=== PATIENT | female | born 1980 | race Caucasian/White ===

== ENCOUNTER 2016-06-03 00:16 | Observation (INO) | payer OTHER ==
[~2016-06-03] VITALS: Ht 167.6 cm; Wt 68.0 kg
--- NOTE | 2016-06-03 01:50 | HHI.HP ---
History & Physical H&P HPI HPI Travel History International Travel<30 Days: No Contact w/Intl Traveler<30Days: No Known Affected Area: No History of Present Illness HPI This patient is a 35-year-old 1 para 0 EDC is September 13, 2016 presently at 25 weeks and 3 days she presents after her witnessed a seizure. He describes the post ictal phase after the seizure patient has a history of seizures since the age of 17 care with HOGA courses been unremarkable to date patient is presently on Keppra thousand milligrams in the morning and 1500 mg in the evening No ruptured membranes no vaginal bleeding no contractions no pain the baby is active her last seizure was in 2000 History (Limited) History Past Medical History Narrative Medical Patient is allergic to sulfa Seizure activity Medications include Keppra 2500 mg per day vitamins Fully casted 4 mg per day Zantac 150 mg twice a day Tylenol Obstetric History Obstetric History First Past Surgical History Narrative Surgical Tonsils were removed Laparoscopy secondary to endometriosis Left knee surgery Umbilical hernia repair Family History Family History: Negative Social History Alcohol Use: No Tobacco Use: No Substance Abuse: No Allergies-Medications Allergies-Medications Comments Allergy to sulfa ROS Review of Systems General / Constitutional: No: Fever, Weight Gain, Weight Loss, Chills, Other Eyes: No: Diploplia, Blurred Vision, Visual changes, Pain, Photophobia, Other HENT: No: Headaches, Vertigo, Dental Difficulties, Lightheadedness, Other Cardiovascular: No: Irregular Rhythm, Chest Pain or Discomfort, Palpitations, Tachycardia, Syncope, Varicosities, Edema, Cyanosis, Other Respiratory: No: Cough, Short of Breath, Wheezing, Other Gastrointestinal: No: Nausea, Vomiting, Diarrhea, Abdominal Pain, Hematemesis, Hematochezia, Constipation, Changes in Bowel Habits, Indigestion, Loss of Appetite, Other Genitourinary: No: Urgency, Frequency, Dysuria, Nocturia, Hematuria, Decreased Urinary Output, Oliguria, Hesitancy, Dribbling, Incontinence, Pelvic Pain, Dyspareunia, Discharge, Menorrhagia, Vaginal Bleeding, Other Musculoskeletal: No: Limited ROM, Weakness, Cramping, Edema, Pain, Other Skin: No Rash, No Itching, No Dryness, No Lumps, No Change in Pigmentation, No Change in Nails, No Alopecia, No Lesions, No Breast Lumps, No Breast Tenderness , No Breast Swelling, No Other Physical Exam Physical Exam Narrative GENERAL: Well-nourished, well-developed patient. Alert oriented 3 and cooperative presently SKIN: Warm and dry. HEAD: Normocephalic and atraumatic. EYES: No scleral icterus. No injection or drainage. Conjunctiva are pink sclerae are clear ENT: No nasal drainage noted. Mucous membranes pink. Airway patent. Mucous membranes are moist NECK: Supple, trachea midline. No JVD. No adenopathy no thyroid enlargement CARDIOVASCULAR: Regular rate and rhythm without murmurs, gallops, or rubs. RESPIRATORY: Breath sounds equal bilaterally. No accessory muscle use. ABDOMEN/GI: Gravid consistent with 25 weeks no epigastric or right upper quadrant tenderness no organomegaly no tenderness over the left or right round ligament no suprapubic tenderness the uterus is consistent with 25 weeks size Gravid to [-] weeks size 25 Fundal Height: [-] GENITOURINARY: Pelvic exam is deferred as patient has no obstetric complaints External Genitalia: intact and normal in appearance BUS glands: [-] Cervix: [-] Dilatation: [-] Effacement: [-] Station: [-] Presentation: [-] Membranes: [intact Uterine Contractions: [-]0 FHT's: Category: [-] 1 Baseline: [-] 140 Reactive: [-] + Accelerations to 160 Variability: [-] Moderate [id number] variability Decels: [-] 0 EXTREMITIES: No cyanosis or edema. 2+ reflux BACK: Nontender without obvious deformity. No CVA tenderness. NEUROLOGICAL: Awake and alert. Motor and sensory grossly within normal limits. Five out of 5 muscle strength in all muscle groups. Normal speech. [employer]PER[employer] is grossly intact Data Data Data Vital Signs Reviewed: Yes (blood pressures 114/69 pulse is 86 temperature is 98.4) [facility] Medical Record Reviewed: No Interpretation(s) 35-year-old at 25 weeks and 3 days Not in labor History of seizures Recent seizure witnessed by Plan Admitted for 24-hour observation External monitoring IV fluid hydration CBC CMP uric acid urinalysis Keppra level Ativan as needed Physician Communication Spoke with Dr. Sorenson she agrees with evaluation and management Diagnosis Diagnosis: Primary Impression: Seizures Additional Impression: 25 weeks gestation of Rosalva Cardenas MD Jun 03, 2016 01:48 Rosalva Cardenas MD Jun 03, 2016 01:50
[2016-06-03] MEDS: LACTATED RINGER'S 1000 ML INJ 1,000 ML IV SCH ×2 (01:51→08:49)
[2016-06-03] MEDS ORDERED: SODIUM CHLORIDE 0.9% FLUSH 5 ML FLUSH IVF PRN (02:00)
[2016-06-03] MEDS ORDERED: levETIRAcetam 500 MG TAB PO ONE (02:00)
[2016-06-03] MEDS ORDERED: LORazepam 2 MG/ML VIAL IV PUSH ONE (02:00)
[2016-06-03] MEDS ORDERED: ZOLPIDEM TARTRATE 5 MG TAB PO ONE (02:00)
[2016-06-03] MEDS ORDERED: FOLIC ACID 1 MG TAB PO ONE (02:00)
[2016-06-03 02:25] LABS: AUTOMATED NEUTROPHIL # 8.5 TH/MM3 (1.8-7.7); BASOPHIL % 0.3 % (0.0-2.0); EOSINOPHIL # 0.1 TH/MM3 (0-0.4); EOSINOPHIL % 1.1 % (0.0-4.0); HEMATOCRIT 29.1 % (35.0-46.0); HEMO FLAGS DIFF FINAL; LYMPH % 16.3 % (9.0-44.0); LYMPHOCYTE # 1.8 TH/MM3 (1.0-4.8); MEAN CELL VOLUME 93.3 FL (80.0-100.0); MEAN CORPUSCULAR HEMOGLOBIN 33.5 PG (27.0-34.0); MEAN CORPUSCULAR HGB CONC 35.9 % (32.0-36.0); MONO % 4.8 % (0.0-8.0); NEUT % 77.5 % (16.0-70.0); PLATELET COUNT 159 TH/MM3 (150-450); RED BLOOD COUNT 3.12 MIL/MM3 (4.00-5.30); WHITE BLOOD COUNT 10.9 TH/MM3 (4.0-11.0)
[2016-06-03 02:38] LABS: BLOOD, URINE NEG (NEG); GLUCOSE,URINE NEG (NEG); KETONE, URINE 10 mg/dL (NEG); MUCUS URINE FEW /lpf (OCC); NITRITE,URINE NEG (NEG); PH, URINE 5.5 (5.0-8.5); RENAL EPITHELIAL CELLS <1 /hpf; URINE COLOR YELLOW (YELLW/STRAW)
[2016-06-03 02:39] LABS: COMMENT (UR) CULT NOT INDICATED; CULTURE IF INDICATED CULT NOT INDICATED
[2016-06-03 02:50] LABS: ALT (GPT) 17 U/L (10-53); ANION GAP 9 MEQ/L (5-15); AST (GOT) 11 U/L (15-37); BICARBONATE 22.9 MEQ/L (21.0-32.0); BLOOD UREA NITROGEN 10 MG/DL (7-18); CHLORIDE 107 MEQ/L (98-107); GLOMERULAR FILTRATION RATE 108 ML/MIN (>89); POTASSIUM 3.5 MEQ/L (3.5-5.1); SODIUM (NA) 139 MEQ/L (136-145)
[2016-06-03 02:53] LABS: ALKALINE PHOSPHATASE 44 U/L (45-117); TOTAL BILIRUBIN ADULT 0.2 MG/DL (0.2-1.0)
--- NOTE | 2016-06-03 08:14 | PD.OB.ANTE ---
Subjective Diagnosis: (1) Seizures Diagnosis: Principal (2) 25 weeks gestation of Diagnosis: Secondary Antepartum ROS: Reports: movement normal Objective Lab & Micro Results Test 06/03/16 06/03/16 00:35 01:15 Urine Color YELLOW Urine Turbidity CLEAR Urine pH 5.5 Urine Specific [place] 1.023 Urine Protein TRACE mg/dL Urine Glucose (UA) NEG mg/dL Urine Ketones 10 mg/dL Urine Occult Blood NEG Urine Nitrite NEG Urine Bilirubin NEG Urine Urobilinogen LESS THAN 2.0 MG/DL Urine Leukocyte Esterase NEG Urine RBC 1 /hpf Urine WBC 3 /hpf Urine Renal Epithelial Cells <1 /hpf Urine Mucus FEW /lpf Microscopic Urinalysis Comment CULT NOT INDICATED White Blood Count 10.9 TH/MM3 Red Blood Count 3.12 MIL/MM3 Hemoglobin 10.5 GM/DL Hematocrit 29.1 % Mean Corpuscular Volume 93.3 FL Mean Corpuscular Hemoglobin 33.5 PG Mean Corpuscular Hemoglobin 35.9 % Concent Red Cell Distribution Width 13.0 % Platelet Count 159 TH/MM3 Mean Platelet Volume 9.6 FL Neutrophils (%) (Auto) 77.5 % Lymphocytes (%) (Auto) 16.3 % Monocytes (%) (Auto) 4.8 % Eosinophils (%) (Auto) 1.1 % Basophils (%) (Auto) 0.3 % Neutrophils # (Auto) 8.5 TH/MM3 Lymphocytes # (Auto) 1.8 TH/MM3 Monocytes # (Auto) 0.5 TH/MM3 Eosinophils # (Auto) 0.1 TH/MM3 Basophils # (Auto) 0.0 TH/MM3 CBC Comment DIFF FINAL Differential Comment Sodium Level 139 MEQ/L Potassium Level 3.5 MEQ/L Chloride Level 107 MEQ/L Carbon Dioxide Level 22.9 MEQ/L Anion Gap 9 MEQ/L Blood Urea Nitrogen 10 MG/DL Creatinine 0.63 MG/DL Estimat Glomerular Filtration 108 ML/MIN Rate Random Glucose 94 MG/DL Calcium Level 8.6 MG/DL Total Bilirubin 0.2 MG/DL Aspartate Amino Transf 11 U/L (AST/SGOT) Alanine Aminotransferase 17 U/L (ALT/SGPT) Alkaline Phosphatase 44 U/L Total Protein 6.1 GM/DL Albumin 2.9 GM/DL Physical Exam GENERAL: Well-nourished, well-developed patient. CARDIOVASCULAR: Regular rate and rhythm without murmurs, gallops, or rubs. RESPIRATORY: Breath sounds equal bilaterally. No accessory muscle use. ABDOMEN/GI: Abdomen soft, non-tender. Fundus: [-] GENITOURINARY: External Genitalia: deferred Cervix: [-] Dilatation: [-] Effacement: [-] Station: [-] Presentation: [-] Membranes: [-] Uterine Contractions: [-] FHT's: Category: [-] 1 Baseline: [-] Reactive: [-] Variability: [-] good Decels: [-] EXTREMITIES: No cyanosis or edema, non-tender, without signs of DVT. Assessment and Plan Problem List: (1) Seizures Status: Acute (2) 25 weeks gestation of Status: Acute Assessment and Plan OB diagnostic US pt sees neurologist at [facility], Dr Solis may need to consult neuro here Nguyen Tadeo MD Jun 03, 2016 08:14
[2016-06-03] MEDS ORDERED: SODIUM CHLORIDE 0.9% FLUSH 5 ML FLUSH IVF SCH (09:00)
[2016-06-03] MEDS ORDERED: FAMOTIDINE 20 MG TAB PO SCH (09:00)
[2016-06-03 12:14] VITALS: BP 110/61; PULSE 71
[2016-06-03 13:00] VITALS: RESP 17
[2016-06-03 15:10] VITALS: BP 104/64
[2016-06-03] MEDS ORDERED: levETIRAcetam 500 MG TAB PO SCH (21:00)
--- NOTE | 2016-06-04 05:49 | MB ---
cc: MINNIE CAUSEY DATE OF CONSULTATION 06/03/2016 REASON FOR CONSULTATION Breakthrough seizure. HISTORY OF PRESENT ILLNESS This is a 35-year-old female who has a past medical history of seizures diagnosed when she was 17 years of age, has complex partial seizures with secondary generalization. Currently 25 weeks and on Keppra 1000 mg in the morning and 1500 at night. She takes the medication faithfully every day. She denies missing a single dose. She also takes folic acid as well 4 mg. The patient's last seizure was in 2000. Her seizures are always described as being nocturnal seizures. She was initially on Depakote until she was in college where she was switched to Tegretol and in 2006 she was started on Keppra. She has a positive family history of seizures in her aunt. The patient was found by her to be having a grand mal seizure that was brief, followed by postictal confusion. Denies any foaming, tongue biting or loss of sphincter control. The patient denies any change in daily habit, lifestyle, dehydration, recent infection or recent medication added to her list.The patient was also assessed by the [employer] and their evaluation was unremarkable. REVIEW OF SYSTEMS A 12-point review of systems is negative except for what is stated in the HPI. PAST MEDICAL HISTORY Seizures. FAMILY HISTORY Positive for seizures in aunt. SOCIAL HISTORY Denies alcohol, tobacco or substance abuse. PAST SURGICAL HISTORY 1. Tonsillectomy. 2. Laparoscopic surgery secondary to endometriosis. 3. Left knee surgery. 4. Umbilical hernia repair. MEDICATIONS 1. Keppra. 2. Folic acid. 3. Zantac. 4. Tylenol. ALLERGIES SULFA. PHYSICAL EXAMINATION GENERAL: Pleasant, good historian. Well-developed, awake, cooperative. HEENT: Atraumatic, normocephalic. Intact hearing and intact vision. NECK: Supple. No adenopathy. No signs of meningeal irritation. CARDIOVASCULAR: Regular rate and rhythm. RESPIRATORY: Equal breath sounds, no wheezes. NEUROLOGIC EXAMINATION: Awake, alert, oriented to time, person and place. Cranial nerves are grossly intact II-XII. Motor, sensory and cerebellar functions are intact. LABORATORY DATA White blood cells 10.9, hemoglobin 10.5, MCV 93.3, platelet count 159. Sodium 139, potassium 3.5, carbon dioxide 22.9, BUN 10, creatinine 0.63. Calcium 8.6, AST 11, alkaline phosphatase 44, total protein 6.1, albumin 2.9. Keppra level is pending. DIAGNOSTIC IMPRESSION 1. Breakthrough seizures. 1. Likely etiology is the increase of the volume in the third trimester, increased urinary clearance of the Keppra in the third trimester of that requires a titration of the dose. We discussed the possible effect of Zantac in slowing the absorption. There was no evidence that Zantac would interfere with absorption of Keppra. PLAN 1. Increase Keppra dose to 1500 twice daily. 2. Continue folic acid 4 mg daily. 3. Seizure precautions. 4. Follow up on the Keppra level. Thank you for the opportunity to participate in the care of your patient. MD VERA Neville/MAYELA /11:20 PM /5:41 AM CORTNEY
== END 2016-06-03 15:34 | disposition home or self-care (01) ==
LOC: HOBED 00:16 → H2EA 02:01
PROVIDERS: ADMIT Obstetrics & Gynecology; ATTEND Obstetrics & Gynecology
DX: R56.9 Unspecified convulsions (principal); Z3A.25 25 weeks gestation of pregnancy
CPT/HCPCS: 76816; 80053; 80177; 81001; 85025; 96360; 99285; G0378; J7120

== ENCOUNTER 2016-09-01 20:12 | Inpatient (IN) | payer OTHER ==
[~2016-09-01] VITALS: Ht 167.6 cm; Wt 77.1 kg
[2016-09-01] VITALS (18 sets, daily range): BP systolic 118–130; BP diastolic 65–82; PULSE 80–105; RESP 18; TEMP 98
[2016-09-01] MEDS ORDERED: ZANT150T2 PO (20:47)
[2016-09-01] MEDS ORDERED: PREN29TA PO (20:47)
[2016-09-01] MEDS ORDERED: LACTATED RINGER'S 1000 ML INJ 1,000 ML IV PRN (20:47)
[2016-09-01] MEDS ORDERED: FOLI5CAP PO (20:48)
[2016-09-01] MEDS ORDERED: KEPP10002 PO ×2 (20:49)
[2016-09-01] MEDS ORDERED: levETIRAcetam 500 MG TAB PO SCH (21:00)
[2016-09-01] MEDS ORDERED: OXYTOCIN 30 UNITS-500ML PREMIX 500 ML IV ONE (21:00)
[2016-09-01] MEDS ORDERED: CITRIC ACID-SODIUM CITRATE LIQ 30 ML UDC PO SCH (21:00)
[2016-09-01] MEDS ORDERED: MINERAL OIL 10 ML VIAL TOPICAL PRN (21:00)
[2016-09-01] MEDS ORDERED: ONDANSETRON HCL 4 MG/2 ML VIAL IV PRN (21:00)
[2016-09-01] MEDS ORDERED: LIDOCAINE HCL 1% 50 ML VIAL I-DERMAL PRN (21:00)
[2016-09-01] MEDS ORDERED: LIDOCAINE HCL 1% 50 ML VIAL INFIL PRN (21:00)
[2016-09-01] MEDS ORDERED: SODIUM CHLORID 0.9% 500 ML INJ 500 ML IV PRN (21:00)
[2016-09-01] MEDS ORDERED: SODIUM CHLOR 0.9% 1000 ML INJ 1,000 ML IV PRN (21:07)
--- NOTE | 2016-09-01 21:08 | PD ---
HPI Chief Complaint contractions Date Seen: Sep 01, 2016 Time Seen: 20:45 Travel History International Travel<30 Days: No Contact w/Intl Traveler<30Days: No Known Affected Area: No History of Present Illness HPI Pt is a 35 y/o G1 with IUP at 38w2d who presents with c/o contractions. denies vb, lof. +FM Para: 0 : 1 History Past Medical History Narrative Medical seizure disorder Obstetric History Obstetric History G1 Past Surgical History Narrative Surgical tonsillectomy umb hernia repair knee surg laparoscopy Family History Family History: Negative Social History Alcohol Use: No Tobacco Use: No Substance Abuse: No Allergies-Medications (Allergen,Severity, Reaction): Coded Allergies: Sulfa (Verified Allergy, Intermediate, Hives, 06/03/16) Home Meds Reported Medications Levetiracetam (Keppra)1,000 Mg Tab2,500 Mg PO HS #60 TAB Ref 0 09/01/16 Levetiracetam (Keppra)1,000 Mg Tab2,000 Mg PO AC BREAKFAST #60 TAB Ref 0 09/01/16 Folic Acid 5 Mg Cap5 Mg PO DAILY Ref 0 09/01/16 Ranitidine (Zantac)150 Mg [id number] Mg PO BID #60 TAB Ref 0 09/01/16 Vit-Iron Carbonyl ( Plus Iron 29-1 mg)1 Tab Tab1 Tab PO DAILY #30 TAB Ref 0 09/01/16 Review of Systems General / Constitutional: No: Fever, Weight Gain, Weight Loss, Chills, Other Eyes: No: Diploplia, Blurred Vision, Visual changes, Pain, Photophobia, Other HENT: No: Headaches, Vertigo, Dental Difficulties, Lightheadedness, Other Cardiovascular: No: Irregular Rhythm, Chest Pain or Discomfort, Palpitations, Tachycardia, Syncope, Varicosities, Edema, Cyanosis, Other Respiratory: No: Cough, Short of Breath, Wheezing, Other Gastrointestinal: No: Nausea, Vomiting, Diarrhea, Abdominal Pain, Hematemesis, Hematochezia, Constipation, Changes in Bowel Habits, Indigestion, Loss of Appetite, Other Genitourinary: No: Urgency, Frequency, Dysuria, Nocturia, Hematuria, Decreased Urinary Output, Oliguria, Hesitancy, Dribbling, Incontinence, Pelvic Pain, Dyspareunia, Discharge, Menorrhagia, Vaginal Bleeding, Other Musculoskeletal: No: Limited ROM, Weakness, Cramping, Edema, Pain, Other Skin: No Rash, No Itching, No Dryness, No Lumps, No Change in Pigmentation, No Change in Nails, No Alopecia, No Lesions, No Breast Lumps, No Breast Tenderness , No Breast Swelling, No Other Neurologic: No: Weakness, Dizziness, Syncope, Focal Abnormalities, Coordination Problem, Headache, Slurred Speech, Seizures, Other Psychiatric: No: Anxiety, Depression, Suicidal Ideations, Disorder of Thought, Mood Disorder, Substance Abuse, Homicidal Ideation, Other Endocrine: No: Heat Intolerance, Cold Intolerance, Polydipsia, Polyuria, Other Hematologic/Lymphatic: No Easy Bruising, No Lymph Node Enlargement, No Other Physical Exam 126/81, P 84, R 18, T 98.1 Narrative GENERAL: Well-nourished, well-developed patient. SKIN: Warm and dry. HEAD: Normocephalic and atraumatic. EYES: No scleral icterus. No injection or drainage. ENT: No nasal drainage noted. Mucous membranes pink. Airway patent. NECK: Supple, trachea midline. No JVD. CARDIOVASCULAR: Regular rate and rhythm without murmurs, gallops, or rubs. RESPIRATORY: Breath sounds equal bilaterally. No accessory muscle use. ABDOMEN/GI: Abdomen soft, non-tender, bowel sounds present, no rebound, no guarding Gravid GENITOURINARY: External Genitalia: intact and normal in appearance cervix 4-5/90/-1 by RN exam Uterine Contractions: [q 2-3] FHT's: Category: [-] Baseline: [-] Reactive: [-] Variability: [-] Decels: [-] EXTREMITIES: No cyanosis or edema. BACK: Nontender without obvious deformity. No CVA tenderness. NEUROLOGICAL: Awake and alert. Motor and sensory grossly within normal limits. Five out of 5 muscle strength in all muscle groups. Normal speech. Data Data Vital Signs Reviewed: Yes Orders Vital Signs (Adult) .ON ADMISSION (09/01/16 20:47) ^ Labor Status (09/01/16 20:47) Admit To Inpatient (09/01/16 ) Code Status (09/01/16 20:47) Vital Signs (Adult) .Per protocol (09/01/16 20:47) Activity Oob Ad Alexandra (09/01/16 20:47) Heart (09/01/16 20:47) Amnioinfusion (09/01/16 20:47) Urinary Catheter Management .ONCE (09/01/16 20:47) Diet Liquid (09/02/16 Breakfast) Lactated Ringer's 1000 Ml Inj (Lr 1000 M (09/01/16 20:47) Lactated Ringer's 1000 Ml Inj (Lr 1000 M (09/01/16 20:47) Sodium Chlorid 0.9% 500 Ml Inj (Ns 500 M (09/01/16 21:00) Sodium Chlor 0.9% 1000 Ml Inj (Ns 1000 M (09/01/16 21:07) Lidocaine 1% Inj (50 Ml) (Xylocaine 1% I (09/01/16 21:00) Citric Acid-Sodium Citrate Liq (Bicitra (09/01/16 21:00) Ondansetron Inj (Zofran Inj) (09/01/16 21:00) Fentanyl Inj (Fentanyl Inj) (09/01/16 21:00) Fentanyl Inj (Fentanyl Inj) (09/01/16 21:00) Complete Blood Count With Diff (09/01/16 20:47) Hold Clot (09/01/16 20:47) Abo/Rh Blood Type (09/01/16 20:47) Urinalysis - C+S If Indicated (09/01/16 20:47) Resp Oxygen Non Rebreathe Mask (09/01/16 ) ^ Epidural / Intrathecal Infus (09/01/16 20:47) Oxytocin 30 Units-500ml Premix (Pitocin (09/01/16 21:00) Lidocaine 1% Inj (50 Ml) (Xylocaine 1% I (09/01/16 21:00) Light Mineral Oil (Muri-Lube Oil) (09/01/16 21:00) Inpatient Certification (09/01/16 ) Ob (2e) Additional Admit Info (09/01/16 20:51) Levetiracetam (Keppra) (09/02/16 06:00) Levetiracetam (Keppra) (09/01/16 21:00) MDM Narrative Course / MDM 35 y/o G1 with IUP at 38.2 wks in labor admit for delivery seizure disorder--keppra ordered GBS neg Regulo Tabor MD Sep 01, 2016 21:08
[2016-09-01 21:19] LABS: BACTERIA, URINE RARE /hpf; BLOOD, URINE NEG (NEG); COMMENT (UR) CULT NOT INDICATED; CULTURE IF INDICATED CULT NOT INDICATED; GLUCOSE,URINE NEG (NEG); KETONE, URINE TRACE mg/dL (NEG); NITRITE,URINE NEG (NEG); SQUAMOUS EPITHELIAL CELL URINE 1 /hpf (0-5); URINE COLOR YELLOW (YELLW/STRAW)
[2016-09-01] MEDS ORDERED: fentaNYL 2MCG-BUPIV 0.125% INJ 100 ML ONE (21:29)
[2016-09-01 21:31] LABS: AUTOMATED NEUTROPHIL # 11.1 TH/MM3 (1.8-7.7); BASOPHIL # 0.1 TH/MM3 (0-0.2); BASOPHIL % 0.7 % (0.0-2.0); EOSINOPHIL # 0.1 TH/MM3 (0-0.4); EOSINOPHIL % 0.9 % (0.0-4.0); HEMATOCRIT 35.6 % (35.0-46.0); HEMO FLAGS DIFF FINAL; LYMPH % 22.4 % (9.0-44.0); LYMPHOCYTE # 3.5 TH/MM3 (1.0-4.8); MEAN CELL VOLUME 95.4 FL (80.0-100.0); MEAN CORPUSCULAR HGB CONC 33.6 % (32.0-36.0); MONO % 5.3 % (0.0-8.0); NEUT % 70.7 % (16.0-70.0); PLATELET COUNT 153 TH/MM3 (150-450); RED BLOOD COUNT 3.73 MIL/MM3 (4.00-5.30); RED CELL DISTRIBUTION WIDTH 12.7 % (11.6-17.2); WHITE BLOOD COUNT 15.7 TH/MM3 (4.0-11.0)
[2016-09-01] MEDS: LACTATED RINGER'S 1000 ML INJ 1,000 ML IV SCH (21:44)
[2016-09-01] MEDS ORDERED: OXYTOCIN 30 UNITS-500ML PREMIX 500 ML IV SCH (22:00)
[2016-09-01] MEDS ORDERED: FAMOTIDINE 20 MG/2 ML VIAL IV PUSH SCH (22:00)
--- NOTE | 2016-09-01 22:01 | HHI.HP ---
HPI Chief Complaint Contractions Date Seen: Sep 01, 2016 Travel History International Travel<30 Days: No Contact w/Intl Traveler<30Days: No Known Affected Area: No History of Present Illness HPI Patient is a 35 year old at 38-2/7 weeks gestation who presents today for contractions. She denies any vaginal bleeding or discharge. No gush or leaking of fluid. Positive movement. History Past Medical History Narrative Medical seizure disorder Obstetric History Obstetric History Past Surgical History Narrative Surgical tonsillectomy umbilical hernia repair knee surgery laparoscopy Family History Family History: Negative Social History Alcohol Use: No Tobacco Use: No Substance Abuse: No Allergies-Medications (Allergen,Severity, Reaction): Coded Allergies: Sulfa (Verified Allergy, Intermediate, Hives, 06/03/16) Home Meds Reported Medications Levetiracetam (Keppra)1,000 Mg Tab2,500 Mg PO HS #60 TAB Ref 0 09/01/16 Levetiracetam (Keppra)1,000 Mg Tab2,000 Mg PO AC BREAKFAST #60 TAB Ref 0 09/01/16 Folic Acid 5 Mg Cap5 Mg PO DAILY Ref 0 09/01/16 Ranitidine (Zantac)150 Mg [id number] Mg PO BID #60 TAB Ref 0 09/01/16 Vit-Iron Carbonyl ( Plus Iron 29-1 mg)1 Tab Tab1 Tab PO DAILY #30 TAB Ref 0 09/01/16 Review of Systems Except as stated in HPI: all other systems reviewed are Neg General / Constitutional: No: Fever, Chills Eyes: No: Visual changes HENT: No: Headaches Cardiovascular: No: Chest Pain or Discomfort Respiratory: No: Cough, Short of Breath Gastrointestinal: No: Abdominal Pain Genitourinary: Pelvic Pain, No: Discharge, Vaginal Bleeding Musculoskeletal: No: Edema Psychiatric: No: Substance Abuse Physical Exam Vital Signs Date Time Temp Pulse Resp B/P Pulse Ox O2 Delivery O2 Flow Rate FiO2 09/01/16 21:42 18 09/01/16 21:33 80 129/72 Narrative GENERAL: Well-nourished, well-developed patient. SKIN: Warm and dry. HEAD: Normocephalic and atraumatic. EYES: No scleral icterus. No injection or drainage. ENT: No nasal drainage noted. Mucous membranes pink. Airway patent. NECK: Supple, trachea midline. No JVD. CARDIOVASCULAR: Regular rate and rhythm without murmurs, gallops, or rubs. RESPIRATORY: Breath sounds equal bilaterally. No accessory muscle use. ABDOMEN/GI: Abdomen soft, non-tender, bowel sounds present, no rebound, no guarding Gravid to 38 weeks size GENITOURINARY: External Genitalia: intact and normal in appearance BUS glands: normal Cervix: midposition Dilatation: 4-5 Effacement: 90 Station: -1 Presentation: vertex Membranes: bulging Uterine Contractions: q1-2 min FHT's: Category: I Baseline: 130 Reactive: + Variability: moderate Decels: none EXTREMITIES: No cyanosis or edema. BACK: Nontender without obvious deformity. NEUROLOGICAL: Awake and alert. Motor and sensory grossly within normal limits. Normal speech. Data Data Vital Signs Reviewed: Yes Orders Vital Signs (Adult) .ON ADMISSION (09/01/16 20:47) ^ Labor Status (09/01/16 20:47) Admit To Inpatient (09/01/16 ) Code Status (09/01/16 20:47) Vital Signs (Adult) .Per protocol (09/01/16 20:47) Activity Oob Ad Alexandra (09/01/16 20:47) Heart (09/01/16 20:47) Amnioinfusion (09/01/16 20:47) Urinary Catheter Management .ONCE (09/01/16 20:47) Diet Liquid (09/02/16 Breakfast) Lactated Ringer's 1000 Ml Inj (Lr 1000 M (09/01/16 20:47) Lactated Ringer's 1000 Ml Inj (Lr 1000 M (09/01/16 20:47) Sodium Chlorid 0.9% 500 Ml Inj (Ns 500 M (09/01/16 21:00) Sodium Chlor 0.9% 1000 Ml Inj (Ns 1000 M (09/01/16 21:07) Lidocaine 1% Inj (50 Ml) (Xylocaine 1% I (09/01/16 21:00) Citric Acid-Sodium Citrate Liq (Bicitra (09/01/16 21:00) Ondansetron Inj (Zofran Inj) (09/01/16 21:00) Fentanyl Inj (Fentanyl Inj) (09/01/16 21:00) Fentanyl Inj (Fentanyl Inj) (09/01/16 21:00) Complete Blood Count With Diff (09/01/16 20:47) Hold Clot (09/01/16 20:47) Abo/Rh Blood Type (09/01/16 20:47) Urinalysis - C+S If Indicated (09/01/16 20:47) Resp Oxygen Non Rebreathe Mask (09/01/16 ) ^ Epidural / Intrathecal Infus (09/01/16 20:47) Oxytocin 30 Units-500ml Premix (Pitocin (09/01/16 21:00) Lidocaine 1% Inj (50 Ml) (Xylocaine 1% I (09/01/16 21:00) Light Mineral Oil (Muri-Lube Oil) (09/01/16 21:00) Inpatient Certification (09/01/16 ) Ob (2e) Additional Admit Info (09/01/16 20:51) Levetiracetam (Keppra) (09/02/16 06:00) Levetiracetam (Keppra) (09/01/16 21:00) Famotidine Inj (Pepcid Inj) (09/01/16 22:00) Fentanyl 2mcg-Bupiv 0.125% Inj (Fentanyl (09/01/16 21:29) ^ Non Stress Test (09/01/16 21:47) Response To Medication .Post New Med Administration, Reaction (09/01/16 21:47) ^ Discontinue Medication (09/01/16 21:47) Oxytocin 30 Units-500ml Premix (Pitocin (09/01/16 22:00) Labs Laboratory Tests Test 09/01/16 09/01/16 20:30 21:15 Urine Color YELLOW Urine Turbidity CLEAR Urine pH 6.0 Urine Specific [place] 1.012 Urine Protein NEG Urine Glucose (UA) NEG Urine Ketones TRACE Urine Occult Blood NEG Urine Nitrite NEG Urine Bilirubin NEG Urine Urobilinogen LESS THAN 2.0 Urine Leukocyte Esterase TRACE Urine RBC LESS THAN 1 Urine WBC 2 Urine Squamous Epithelial 1 Cells Urine Bacteria RARE Microscopic Urinalysis Comment CULT NOT INDICATED White Blood Count 15.7 Red Blood Count 3.73 Hemoglobin 12.0 Hematocrit 35.6 Mean Corpuscular Volume 95.4 Mean Corpuscular Hemoglobin 32.0 Mean Corpuscular Hemoglobin 33.6 Concent Red Cell Distribution Width 12.7 Platelet Count 153 Mean Platelet Volume 9.9 Neutrophils (%) (Auto) 70.7 Lymphocytes (%) (Auto) 22.4 Monocytes (%) (Auto) 5.3 Eosinophils (%) (Auto) 0.9 Basophils (%) (Auto) 0.7 Neutrophils # (Auto) 11.1 Lymphocytes # (Auto) 3.5 Monocytes # (Auto) 0.8 Eosinophils # (Auto) 0.1 Basophils # (Auto) 0.1 CBC Comment DIFF FINAL Differential Comment Assessment/Plan Assessment and Plan 35 year old at 38-2/7 weeks gestation 1. IUP- Category I tracing, reassuring. Continue routine obstetric care. 2. Active Labor- patient requests epidural 3. GBS negative 4. Seizure disorder- continue home dose of Keppra 5. Anticipate vaginal delivery dominicw Dr. Judith Desai,Johana Martin MD R2 Sep 01, 2016 22:01
--- NOTE | 2016-09-01 22:41 | PD.LABORPN ---
Subjective Subjective Patient is resting comfortably with epidural in place. Objective Vital Signs Vital Signs Date Time Temp Pulse Resp B/P Pulse Ox O2 Delivery O2 Flow Rate FiO2 09/01/16 22:25 18 09/01/16 22:20 87 09/01/16 22:18 92 128/70 09/01/16 22:16 128/69 09/01/16 21:42 18 09/01/16 21:33 80 129/72 Objective Pelvic Exam: Cervix: midposition Dilatation: 8 Effacement: 100 Station: -2 Presentation: vertex Membranes: ruptured Uterine Contractions: q2-4min FHT's: Category: I Baseline: 135 Reactive: + Variability: moderate Decels: none Assessment/Plan Assessment and Plan 35 year old at 38-2/7 weeks gestation 1. IUP- Category I tracing, reassuring. Continue routine obstetric care. 2. Active Labor- Epidural in place. Cervical change noted. AROM with clear fluid. 3. GBS negative 4. Seizure disorder- continue home dose of Keppra 5. Anticipate vaginal delivery dw Johana Aguilar MD R2 Sep 01, 2016 22:40
[2016-09-02] VITALS (18 sets, daily range): BP systolic 102–131; BP diastolic 57–81; PULSE 67–111; RESP 18; TEMP 98.4–99; O2SAT 99
--- NOTE | 2016-09-02 01:06 | PD.OB.DELI ---
Anesthesia: Epidural Episiotomy: None Vaginal Delivery: Normal Presentation: Occiput anterior Nuchal Cord: None Delayed cord clamping (45 sec): Yes Infant: Female One Minute : 8 Five Minute : 9 Weight: 7 Placenta: Manual removal, Intact, Uterus explored +, 3 vessel cord Shanell Wong MD Sep 02, 2016 01:06
[2016-09-02] MEDS ORDERED: ZOLPIDEM TARTRATE 5 MG TAB PO PRN (01:15)
[2016-09-02] MEDS ORDERED: ACETAMINOPHEN 325 MG TAB PO PRN (01:15)
[2016-09-02] MEDS ORDERED: DOCUSATE SODIUM 50 MG/SENNA 8.6 MG TAB PO PRN (01:15)
[2016-09-02] MEDS ORDERED: ONDANSETRON ODT 4 MG TAB PO PRN (01:15)
[2016-09-02] MEDS ORDERED: SODIUM CHLORIDE 0.9% FLUSH 10 ML FLUSH IV FLUSH PRN (01:15)
[2016-09-02] MEDS ORDERED: BENZOCAINE 20% TOPICAL SPRAY 60 ML CAN TOPICAL PRN (01:15)
[2016-09-02] MEDS ORDERED: ALUMINUM/MAGNESIUM/SIMETH 30 ML CUP PO PRN (01:15)
[2016-09-02] MEDS ORDERED: WITCH HAZEL 50%/GLYCERIN 12.5% 40 PAD JAR TOPICAL PRN (01:15)
[2016-09-02] MEDS: IBUPROFEN 600 MG TAB PO PRN ×2 (02:47→19:17)
[2016-09-02] MEDS ORDERED: levETIRAcetam 500 MG TAB PO SCH ×3 (06:00→20:00)
[2016-09-02] MEDS ORDERED: IBUP-232 PO (10:08)
--- NOTE | 2016-09-02 10:29 | HHI.OB ---
Subjective Post Day: 0 Remarks doing well, , min-mod lochia Objective Vitals/I&O Vital Signs Date Time Temp Pulse Resp B/P Pulse Ox O2 Delivery O2 Flow Rate FiO2 09/02/16 07:30 68 105/70 09/02/16 07:30 98.4 18 09/02/16 03:15 67 109/67 09/02/16 03:01 77 126/63 09/02/16 02:46 73 09/02/16 02:46 118/57 09/02/16 02:15 18 09/02/16 02:02 83 111/61 09/02/16 02:00 18 09/02/16 01:46 92 118/62 09/02/16 01:42 18 09/02/16 01:31 119/72 09/02/16 01:31 96 09/02/16 01:15 113/64 09/02/16 01:15 94 09/02/16 01:11 18 09/02/16 01:07 102/80 09/02/16 01:01 111 09/02/16 00:30 96 131/81 09/02/16 00:15 122/75 09/02/16 00:15 96 09/02/16 00:07 18 09/02/16 00:00 89 123/74 09/01/16 23:45 18 09/01/16 23:45 104 118/73 09/01/16 23:30 97 118/65 09/01/16 23:15 105 125/72 09/01/16 23:10 97 09/01/16 23:05 90 09/01/16 23:00 18 09/01/16 23:00 98.0 09/01/16 23:00 96 130/82 09/01/16 22:58 18 09/01/16 22:55 92 09/01/16 22:45 126/72 09/01/16 22:40 94 09/01/16 22:35 91 09/01/16 22:30 122/68 09/01/16 22:29 86 120/66 09/01/16 22:25 18 09/01/16 22:20 87 09/01/16 22:18 92 128/70 09/01/16 22:16 128/69 09/01/16 21:42 18 09/01/16 21:33 80 129/72 Objective Remarks GENERAL: Well-nourished, well-developed patient. CARDIOVASCULAR: Regular rate and rhythm without murmurs, gallops, or rubs. RESPIRATORY: Breath sounds equal bilaterally. No accessory muscle use. ABDOMEN/GI: Abdomen soft, non-tender. Fundus: Firm, non-tender at umbilicus. GENITOURINARY: Light to moderate bleeding. EXTREMITIES: No cyanosis or edema, non-tender, without signs of DVT. Medications and IVs Current Medications Medications (Trade) Dose Ordered Sig/Matteo Route Start Time Stop Time Status Last Admin Lactated Ringer's 1,000 ml @ 125 mls/hr Q8H IV 09/01/16 20:47 09/01/16 21:44 Lactated Ringer's 1,000 ml @ 3,000 mls/hr Q20M PRN IV 09/01/16 20:47 09/01/16 22:57 Sodium Chloride 500 ml @ 1,000 mls/hr ONCE PRN IV 09/01/16 21:00 (NS 1000 ml Inj) 1,000 ml @ 100 mls/hr Q10H PRN IV 09/01/16 21:07 (Zofran Inj) 4 mg Q6H PRN IV 09/01/16 21:00 09/01/16 23:53 (fentaNYL INJ) 50 mcg Q1H PRN IV PUSH 09/01/16 21:00 (fentaNYL INJ) 100 mcg Q1H PRN IV PUSH 09/01/16 21:00 (Muri-Lube Oil) 10 ml UNSCH PRN TOPICAL 09/01/16 21:00 Levetriacetam 2000 mg 2,000 mg DAILY@0600 PO 09/02/16 06:00 09/02/16 06:09 (Pitocin 30 Units-NS 500 ml Premix) 500 ml @ 0 mls/hr TITRATE IV 09/01/16 22:00 (NS Flush) 2 ml UNSCH PRN IV FLUSH 09/02/16 01:15 (Tylenol) 650 mg Q4H PRN PO 09/02/16 01:15 (Motrin) 600 mg Q6H PRN PO 09/02/16 01:15 09/02/16 02:47 (Americaine 20% Top Spr) 1 spray Q4H PRN TOPICAL 09/02/16 01:15 (Tucks Pads) 1 applic QID PRN TOPICAL 09/02/16 01:15 (Ophelia-Colace) 2 tab Q12H PRN PO 09/02/16 01:15 (Ambien) 5 mg HS PRN PO 09/02/16 01:15 (M-M-R Ii Inj) 0.5 ml ONCE ONCE SQ 09/02/16 16:00 09/02/16 16:01 (Boostrix Inj) 0.5 ml ONCE ONCE IM 09/02/16 16:00 09/02/16 16:01 (Mag-Al Plus Susp Liq) 15 ml Q8H PRN PO 09/02/16 01:15 (Zofran Odt) 4 mg Q6H PRN PO 09/02/16 01:15 (Keppra) 2,500 mg DAILY@1800 PO 09/02/16 18:00 (Pepcid) 20 mg BID PO 09/02/16 09:00 Assessment/Plan Assessment and Plan 35 year old s/p early this morning PPD 0 cont routine pp care Seizure disorder- continue home dose of Keppra 2000mg in am, 2500mg in pm Dispo home tomorrow if infant ready Mavis Paredes MD Sep 02, 2016 10:29
[2016-09-02] MEDS: LACTATED RINGER'S 1000 ML INJ 1,000 ML IV SCH (11:07)
[2016-09-02] MEDS: FAMOTIDINE 20 MG TAB PO SCH ×2 (11:10→20:04)
[2016-09-02] MEDS ORDERED: MEASLES, MUMPS, RUBELLA VACCINE 0.5 ML VIAL SQ ONE (16:00)
[2016-09-02] MEDS ORDERED: DIPHTH/TETANUS/ACEL PERTUSSIS (BOOSTER) 0.5 ML VIAL/PFS IM ONE (16:00)
[2016-09-03] MEDS ORDERED: levETIRAcetam 500 MG TAB PO SCH (08:00)
--- NOTE | 2016-09-03 08:14 | HHI.OB ---
Subjective Post Day: 1 Remarks s/p girl "Laura" Objective Vitals/I&O Vital Signs Date Time Temp Pulse Resp B/P Pulse Ox O2 Delivery O2 Flow Rate FiO2 09/02/16 21:49 99.0 81 18 124/75 99 09/02/16 20:17 18 Objective Remarks GENERAL: Well-nourished, well-developed patient. CARDIOVASCULAR: Regular rate and rhythm without murmurs, gallops, or rubs. RESPIRATORY: Breath sounds equal bilaterally. No accessory muscle use. ABDOMEN/GI: Abdomen soft, non-tender. Fundus: Firm, non-tender at umbilicus. GENITOURINARY: Light bleeding. EXTREMITIES: No cyanosis or edema, non-tender, without signs of DVT. Medications and IVs Current Medications Medications (Trade) Dose Ordered Sig/Matteo Route Start Time Stop Time Status Last Admin Lactated Ringer's 1,000 ml @ 125 mls/hr Q8H IV 09/01/16 20:47 09/01/16 21:44 Lactated Ringer's 1,000 ml @ 3,000 mls/hr Q20M PRN IV 09/01/16 20:47 09/01/16 22:57 Sodium Chloride 500 ml @ 1,000 mls/hr ONCE PRN IV 09/01/16 21:00 (NS 1000 ml Inj) 1,000 ml @ 100 mls/hr Q10H PRN IV 09/01/16 21:07 (Zofran Inj) 4 mg Q6H PRN IV 09/01/16 21:00 09/01/16 23:53 (fentaNYL INJ) 50 mcg Q1H PRN IV PUSH 09/01/16 21:00 (fentaNYL INJ) 100 mcg Q1H PRN IV PUSH 09/01/16 21:00 Mineral Oil 10 ml 10 ml UNSCH PRN TOPICAL 09/01/16 21:00 (Pitocin 30 Units-NS 500 ml Premix) 500 ml @ 0 mls/hr TITRATE IV 09/01/16 22:00 (NS Flush) 2 ml UNSCH PRN IV FLUSH 09/02/16 01:15 (Tylenol) 650 mg Q4H PRN PO 09/02/16 01:15 (Motrin) 600 mg Q6H PRN PO 09/02/16 01:15 09/02/16 19:17 (Americaine 20% Top Spr) 1 spray Q4H PRN TOPICAL 09/02/16 01:15 (Tucks Pads) 1 applic QID PRN TOPICAL 09/02/16 01:15 (Ophelia-Colace) 2 tab Q12H PRN PO 09/02/16 01:15 (Ambien) 5 mg HS PRN PO 09/02/16 01:15 (Mag-Al Plus Susp Liq) 15 ml Q8H PRN PO 09/02/16 01:15 (Zofran Odt) 4 mg Q6H PRN PO 09/02/16 01:15 (Pepcid) 20 mg BID PO 09/02/16 09:00 09/02/16 20:04 (Keppra) 2,000 mg DAILY@08 PO 09/03/16 08:00 (Keppra) 2,500 mg DAILY@2000 PO 09/02/16 20:00 09/02/16 19:56 Assessment/Plan Problem List: (1) (spontaneous vaginal delivery) (2) Seizure disorder during Assessment and Plan PPD#1 routine care Seizure disorder - seeing Neurologist weekly during , has appt in 1 week for outpt f/u Keppra level ordered this AM; per pt, goal level 17-20 for now continue home dose of Keppra 2000mg in am, 2500mg in pm Dispo: home tomorrow Discharge Planning routine, 09/04/16 Vira King MD Sep 03, 2016 08:14
[2016-09-03 08:15] VITALS: BP 110/72; PULSE 74; RESP 18; TEMP 98.7
--- NOTE | 2016-09-03 08:15 | HHI.DCPOC ---
Discharge Care Plan Diagnosis: (1) (spontaneous vaginal delivery) Your Health Problems Are: Vaginal delivery Report Symptoms to Your Doctor -Temperate above 100.5 degrees -Redness, of incision or excessive or foul smelling drainage -Unusual pain or calf pain -Increased vaginal bleeding -Painful or difficulty urinating -Feelings of extreme sadness or anxiety after 2 weeks Goals to Promote Your Health * To prevent worsening of your condition and complications * To maintain your health at the optimal level Directions to Meet Your Goals Take your medications as prescribed Follow your dietary instruction Follow activity as directed Ensure plenty of rest for recovery Drink fluids for hydration Keep your appointments as scheduled Take your immunizations and boosters as scheduled If your symptoms worsen call your PCP, if no PCP go to Urgent Care Center or Emergency Room Smoking is Dangerous to Your Health. Avoid second hand smoke Call the 24-hour crisis hotline for domestic abuse at Vira King MD Sep 03, 2016 08:15
[2016-09-03] MEDS: IBUPROFEN 600 MG TAB PO PRN (08:16)
[2016-09-03] MEDS: FAMOTIDINE 20 MG TAB PO SCH (08:16)
== END 2016-09-03 18:20 | disposition home or self-care (01) | DRG 775 ==
LOC: HOBED 20:12 → H2EB 20:54 → H1EA 09-02 03:29
PROVIDERS: ADMIT Obstetrics & Gynecology; ATTEND Obstetrics & Gynecology
PROC: 10E0XZZ Delivery of Products of Conception, External Approach (ICD-10-PCS; principal; 2016-09-02)
DX: O99.354 Diseases of the nervous system complicating childbirth (principal); G40.909 Epilepsy, unspecified, not intractable, without status epilepticus; Z37.0 Single live birth; Z3A.38 38 weeks gestation of pregnancy
CPT/HCPCS: 59025; 80177; 81001; 85025; 86900; 86901; 99285; J0690; J2405; J2590; J7120